=== PATIENT | female | born 1995 | race Two or more races ===

== ENCOUNTER → 2017-05-11 13:35 | Outpatient (CLI) | payer OTHER | END | disposition home or self-care (01) | LOC: LAB 04-30 11:47 | DX: E56.1 Deficiency of vitamin K (principal); E55.9 Vitamin D deficiency, unspecified; M85.9 Disorder of bone density and structure, unspecified ==

== ENCOUNTER 2020-10-04 08:00 | Outpatient (CLI) | payer OTHER | END 2020-10-04 08:30 | disposition home or self-care (01) | LOC: PPH VACUNA 08:00 | DX: Z23 Encounter for immunization (principal) ==

== ENCOUNTER 2020-10-22 08:00 | Outpatient (CLI) | payer OTHER | END 2020-10-22 08:30 | disposition home or self-care (01) | LOC: PPH VACUNA 08:00 | DX: Z23 Encounter for immunization (principal) ==

== ENCOUNTER → 2020-10-22 08:05 | Outpatient (CLI) | payer OTHER | END | disposition home or self-care (01) | LOC: MRI 10-21 07:15 | DX: G93.89 Other specified disorders of brain (principal); R20.2 Paresthesia of skin | CPT/HCPCS: 70552 ==

== ENCOUNTER → 2021-03-28 09:15 | Outpatient (CLI) | payer OTHER | END | disposition home or self-care (01) | LOC: PPH VACUNA 09:15 | PROVIDERS: ATTEND Emergency Medicine Pediatric Emergency Medicine | DX: Z23 Encounter for immunization (principal) ==

== ENCOUNTER 2021-11-14 11:06 | Outpatient (CLI) | payer OTHER | END 2021-11-14 11:30 | disposition home or self-care (01) | LOC: SONOGRAMA 11:06 | PROVIDERS: ATTEND Obstetrics & Gynecology | DX: N91.1 Secondary amenorrhea (principal) ==

== ENCOUNTER 2023-06-07 08:31 | Outpatient (CLI) | payer OTHER | END 2023-06-07 09:00 | disposition home or self-care (01) | LOC: SONOGRAMA 08:31 | PROVIDERS: ATTEND Obstetrics & Gynecology | DX: R10.9 Unspecified abdominal pain (principal); R10.2 Pelvic and perineal pain ==

== ENCOUNTER 2023-06-18 09:06 | Outpatient (CLI) | payer OTHER | END 2023-06-18 09:09 | disposition home or self-care (01) | LOC: NUCLEAR 09:06 | PROVIDERS: ATTEND Internal Medicine Gastroenterology | DX: K81.1 Chronic cholecystitis (principal) ==

== ENCOUNTER 2023-06-18 14:39 | Outpatient (CLI) | payer OTHER | END 2023-06-18 14:54 | disposition home or self-care (01) | LOC: TOM 14:39 | PROVIDERS: ATTEND Internal Medicine Pulmonary Disease | DX: J98.11 Atelectasis (principal); R91.8 Other nonspecific abnormal finding of lung field; Z86.16 Personal history of COVID-19 ==